=== PATIENT | male | born 1990 | race Caucasian/White ===

== ENCOUNTER 2024-08-08 14:45 | Emergency (ER) | payer OTHER, SELFPAY ==
[2024-08-08 14:46] VITALS: BMI 32.8
[2024-08-08 14:58] VITALS: BP 167/97; PULSE 93; RESP 18; TEMP 37.6; O2SAT 97
--- NOTE | 2024-08-08 15:04 | PD.EDSKIN ---
ED Skin Abcess FB-RME/HPI General Chief complaint: Abdominal Pain Stated complaint: POSS CELLULITIS TO MID ABD Time Seen by Provider: 08/08/24 14:52 Arrival date/time: 08/08/24 14:45 34-year-old male with no significant medical problems presents the emergency department complains of skin sore to his abdomen as well as his right leg patient reports no fever nausea vomiting Limitations: no limitations Related Data Previous Rx's ?Medication ?Instructions ?Recorded clindamycin HCl 150 mg capsule 450 mg (3 x 150 mg) PO TID 7 days 08/08/24 #63 caps hydrocodone 5 mg-acetaminophen 325 1 tab PO BID PRN pain #10 tabs 08/08/24 mg tablet ibuprofen 800 mg tablet 800 mg PO TID PRN pain #30 tabs 08/08/24 mupirocin 2 % topical ointment 1 applic topical TID 10 days #22 08/08/24 grams Allergies Allergy/AdvReac Type Severity Reaction Status Date / Time No Known Allergies Allergy Verified 08/08/24 14:48 Review of Systems Review of Systems Systems Reviewed: All systems reviewed, normal except as documented Constitutional Constitutional: Reports system reviewed and no additional complaints, except as documented, Denies fever(s) and Denies headache(s) Eyes Eyes: Reports system reviewed and no additional complaints, except as documented and Denies blurry vision ENT Ears, Nose, Mouth, and Throat: Reports system reviewed and no additional complaints, except as documented, Denies headache(s), Denies nasal congestion and Denies nasal discharge Cardiovascular Cardiovascular: Reports system reviewed and no additional complaints, except as documented, Denies chest pain and Denies dyspnea Respiratory Respiratory: Reports system reviewed and no additional complaints, except as documented, Denies chest congestion, Denies cough and Denies dyspnea Gastrointestinal Gastrointestinal: Reports system reviewed and no additional complaints, except as documented and Denies abdominal pain Integumentary/Breasts Skin/Breast: Reports system reviewed and no additional complaints, except as documented, Denies rash and Reports other (Skin sore, cellulitis) Neurologic Neurologic: Reports system reviewed and no additional complaints, except as documented, Reports as per HPI and Denies headache(s) Past Medical History Social History SMOKING STATUS: Never smoker ED Exam General Limitations: Present no limitations General appearance: Present alert and in no apparent distress Head Head exam: Present atraumatic Eye Eye exam: Present normal appearance, PERRL and EOMI; Absent conjunctival injection ENT ENT exam: Present normal exam, normal oropharynx and mucous membranes moist Neck Neck exam: Present normal inspection, full ROM and trachea midline Chest Chest inspection: Present normal inspection and symmetric chest wall rise Respiratory Respiratory exam: Present normal lung sounds bilaterally Cardiovascular Cardiovascular exam: Present regular rate, normal rhythm and normal heart sounds Abdominal Exam Abdominal exam: Present soft and normal bowel sounds Extremities Exam Extremities exam: Present normal inspection and full ROM Back Exam Back exam: Present normal inspection and full ROM Neurological Exam Neurological exam: Present alert, oriented X3, CN II-XII intact, normal gait and reflexes normal; Absent motor sensory deficit Psychiatric Psychiatric exam: Present normal affect and normal mood Skin Skin exam: Present warm, dry and other (Skin sore) Course Quality Measures none Vital Signs Vital signs: Vital Signs Temperature 99.7 F 08/08/24 14:58 Pulse Rate 93 08/08/24 14:58 Respiratory Rate 18 08/08/24 14:58 Blood Pressure 167/97 H 08/08/24 14:58 Pulse Oximetry (%) 97 08/08/24 14:58 Oxygen Delivery Method Room Air 08/08/24 14:58 O2 saturation 97% on room air within normal limits Skin / Abscess / Foreign Body MDM Narrative MDM Narrative:: 34-year-old male with no significant medical problems presents the emergency department complains of skin sore to his abdomen as well as his right leg patient reports no fever nausea vomiting On exam patient has skin sore to the abdomen as well as right leg Patient will be treated with course of pain medication antibiotics Patient discharged home in no distress to follow-up with primary care doctor in the next 24 to 48 hours and for any worsening symptoms to return to the ER immediately Patient data External records reviewed:: None Clinical information provided by:: patient Social determinants that could affect healthcare access:: none Patient has the following chronic illnesses:: None How is presenting disease/condition affected by chronic disease/condition?: no chronic disease Evaluation data The following diagnostics were reviewed and interpreted by me:: other (specify) (N/A) Lab and/or radiology exams considered but not ordered:: Consider not indicated Interpretation Summary: N/A Medications / Prescriptions Medications or Prescriptions considered but not ordered:: Given Medication administrations:: Given Consultations Consultation(s) initiated? (list below): No Diagnosis Skin/Abscess Differential Diagnosis: abscess of skin or subcutaneous tissue, urticaria and cellulitis Most likely diagnosis given after review of the tests above:: Skin sore, cellulitis Admission Indicated Admission indicated?: not indicated Admission Request Was there a request for admission?: No Disposition Plan Disposition Plan: Discharge Discharge Attestation Discharge Attestation: The patient and all family members were given an opportunity to ask questions and understood the discharge instructions. Discharge instructions specifically effects, indications for sooner follow up or return to the emergency department, and the expected course of current diagnosis. Patient condition: Stable Discharge Plan Plan Patient Disposition: HOME (Self Care) Disposition Comment: Stable Prescriptions/Referrals Prescriptions/Med Rec: New ibuprofen 800 mg tablet 800 mg PO TID PRN (Reason: pain) Qty: 30 0RF clindamycin HCl 150 mg capsule 450 mg PO TID 7 Days Qty: 63 0RF mupirocin 2 % ointment 1 applic topical TID 10 Days Qty: 22 0RF hydrocodone-acetaminophen 5-325 mg tablet 1 tab PO BID MDD 10 PRN (Reason: pain) Qty: 10 0RF Problem List Clinical Impression: Cellulitis Patient/Caregiver Discharge Instructions Education Materials: ED Cellulitis Additional Instructions: Please follow up with your primary care doctor in the next 24-48hrs for any worsening symptoms return here immediately Print Language: Greenlandic Stand Alone Forms: Litzy Award Info., Patient Portal Info Letter PA/CLOTHES DESIGNER Supervising Physician PA/CLOTHES DESIGNER Supervising Physician: Dr. alvarez
== END 2024-08-08 17:00 | disposition home or self-care (01) ==
PROVIDERS: Emergency Provider Emergency Medicine
DX: L03.311 Cellulitis of abdominal wall (principal); L03.115 Cellulitis of right lower limb
CPT/HCPCS: 99281

== ENCOUNTER 2025-02-03 00:21 | Emergency (ER) | payer OTHER, SELFPAY ==
[2025-02-03 00:25] VITALS: BMI 34.4
[2025-02-03 00:33] VITALS: BP 171/133; PULSE 84; RESP 18; TEMP 36.9; O2SAT 100
[2025-02-03] MEDS: CLINDAMYCIN 150 MG CAPSULE 300 MG PO ×2 (00:51)
--- NOTE | 2025-02-03 03:19 | EDNOTE_ITS ---
<Statement entered by Damaris Amezcua MD - 02/03/25 18:26> As co-signing physician, I was present and available for consult prn. I concur with the plan and care as documented by the midlevel provider. ED Skin Abcess FB-RME/HPI General Chief complaint: Hand/Wrist Problems Stated complaint: LEFT HAND SWELLING FOR TWO DAY Time Seen by Provider: 02/03/25 00:40 Arrival date/time: 02/03/25 00:21 35M with no significant PMH presents to ED with 2 days of L hand swelling w/o fall/trauma or open wound. Limitations: no limitations Related Data Home Medications ?Medication ?Instructions ?Recorded ?Confirmed Hydrocodone/Acetaminophen * (NORCO 1 tab PO Q4H PRN [place] IN #0 tabs 05/10/16 5/325 *) Previous Rx's ?Medication ?Instructions ?Recorded Hydrocodone/Acetaminophen * (NORCO 1 - 2 tab PO Q4H [place] N PAIN #10 tabs 05/10/16 5/325 *) ibuprofen 600 mg tablet 1 tab PO Q8HR PRN pain #30 t abs 05/10/16 hydrocodone 5 mg-acetaminophen 325 1 tab PO BID PRN pa in #10 tabs 08/08/24 mg tablet ibuprofen 800 mg tablet 800 mg PO TID PRN pain #30 t abs 08/08/24 clindamycin HCl 300 mg capsule 600 mg (2 x 300 mg) PO BID 7 days 02/03/25 #28 caps Allergies Allergy/AdvReac Type Severity Reaction Status Date / Time No Known Allergies Allergy Verified 02/03/25 00:22 Review of Systems Review of Systems Systems Reviewed: All systems reviewed, normal except as documented Constitutional Constitutional: Reports system reviewed and no additional complaints, except as documented, Denies fever(s) and Denies headache(s) ENT Ears, Nose, Mouth, and Throat: Denies disequilibrium and Denies headache(s) Cardiovascular Cardiovascular: Reports system reviewed and no additional complaints, except as documented, Denies chest pain and Denies dyspnea Respiratory Respiratory: Reports system reviewed and no additional complaints, except as documented, Denies cough and Denies dyspnea Gastrointestinal Gastrointestinal: Reports system reviewed and no additional complaints, except as documented, Denies abdominal pain, Denies nausea and Denies vomiting Integumentary/Breasts Skin/Breast: Reports as per HPI and Reports skin pain Neurologic Neurologic: Reports system reviewed and no additional complaints, except as documented, Denies confusion, Denies disequilibrium and Denies headache(s) Psychiatric Psychiatric: Denies confusion Past Medical History Social History SMOKING STATUS: Never smoker ED Exam General Limitations: Present no limitations General appearance: Present alert and in no apparent distress Head Head exam: Present atraumatic Eye Eye exam: Present normal appearance, PERRL and EOMI ENT ENT exam: Present normal exam, normal oropharynx and mucous membranes moist Neck Neck exam: Present normal inspection, full ROM and trachea midline Chest Chest inspection: Present normal inspection and symmetric chest wall rise Respiratory Respiratory exam: Present normal lung sounds bilaterally Cardiovascular Cardiovascular exam: Present regular rate, normal rhythm and normal heart sounds Abdominal Exam Abdominal exam: Present soft and normal bowel sounds Extremities Exam Extremities exam: Present full ROM Expanded Upper Extremity Exam Hand exam: Present full ROM (L), tenderness, swelling and laceration Back Exam Back exam: Present normal inspection and full ROM Neurological Exam Neurological exam: Present alert, oriented X3 and CN II-XII intact Psychiatric Psychiatric exam: Present normal affect and normal mood Skin Skin exam: Present warm, dry, intact and normal color Course Quality Measures none Orders Category Date Time Status Clindamycin [Cleocin] Med 02/03/25 00:43 Discontinued 300 mg PO X1 ONE Clindamycin [Cleocin] Med 02/03/25 00:48 Discontinued 300 mg PO X1 ONE Vital Signs Vital signs: Vital Signs Temperature 98.5 F 02/03/25 00:33 Pulse Rate 84 02/03/25 00:33 Respiratory Rate 18 02/03/25 00:33 Blood Pressure 171/133 H 02/03/25 00:33 Pulse Oximetry (%) 100 02/03/25 00:33 Oxygen Delivery Method Room Air 02/03/25 00:33 O2 at 100% and WNLs Skin / Abscess / Foreign Body MDM Narrative MDM Narrative:: 35M with no significant PMH presents to ED with 2 days of L hand swelling w/o fall/trauma or open wound. Physical exam reveals area of redness and tenderness around eroded/dry skin between L 3rd and 4th fingers. Likely cellulitis. Patient data External records reviewed:: [facility] previous records Clinical information provided by:: patient Social determinants that could affect healthcare access:: none Patient has the following chronic illnesses:: none How is presenting disease/condition affected by chronic disease/condition?: no chronic disease Evaluation data The following diagnostics were reviewed and interpreted by me:: other (specify) (none) Lab and/or radiology exams considered but not ordered:: not ordered Interpretation Summary: n/a Medications / Prescriptions Medications or Prescriptions considered but not ordered:: ordered Medication administrations:: Medication Administration History Discontinued Medications Clindamycin HCl (Clindamycin 150 Mg Capsule) 300 mg PO X1 ONE Stop: 02/03/25 00:44 Last Admin: 02/03/25 00:51 Dose: 300 mg Documented By: Clindamycin HCl (Clindamycin 150 Mg Capsule) 300 mg PO X1 ONE Stop: 02/03/25 00:49 Last Admin: 02/03/25 00:51 Dose: 300 mg Documented By: above Consultations Consultation(s) initiated? (list below): No Diagnosis Skin/Abscess Differential Diagnosis: abscess of skin or subcutaneous tissue, viral exanthem, dermatophytosis, urticaria, herpes zoster, allergic reaction to drug, cellulitis, eczema, insect bites, impetigo and contact dermatitis Most likely diagnosis given after review of the tests above:: cellulitis Admission Indicated Admission indicated?: not indicated Admission Request Was there a request for admission?: No Disposition Plan Disposition Plan: Discharge Discharge Attestation Discharge Attestation: The patient and all family members were given an opportunity to ask questions and understood the discharge instructions. Discharge instructions specifically effects, indications for sooner follow up or return to the emergency department, and the expected course of current diagnosis. Patient condition: Stable Discharge Plan Plan Patient Disposition: HOME (Self Care) Discharge Disposition comment: Stable Prescriptions/Referrals Prescriptions/Med Rec: New clindamycin HCl 300 mg capsule 600 mg PO BID 7 Days Qty: 28 0RF No Action Hydrocodone/Acetaminophen * (NORCO 5/325 *) 1 TAB tablet 1 tab PO Q4H PRN (Reason: PAIN) Qty: 0 ibuprofen 600 MG tablet 1 tab PO Q8HR PRN (Reason: pain) Qty: 30 0RF Hydrocodone/Acetaminophen * (NORCO 5/325 *) 1 TAB tablet 1 - 2 tab PO Q4H PRN (Reason: PAIN) Qty: 10 0RF Rx Instructions: FOR PAIN ibuprofen 800 mg tablet 800 mg PO TID PRN (Reason: pain) Qty: 30 0RF hydrocodone-acetaminophen 5-325 mg tablet 1 tab PO BID MDD 10 PRN (Reason: pain) Qty: 10 0RF Problem List Clinical Impression: Cellulitis Patient/Caregiver Discharge Instructions Education Materials: ED Cellulitis Additional Instructions: Please follow-up with PCP within 24-48 hours and return immediately if symptoms worsen. Print Language: Croatian Stand Alone Forms: Patient Portal Info Letter PA/VALVE TECHNICIAN Supervising Physician PA/VALVE TECHNICIAN Supervising Physician: Dr. Amezcua
== END 2025-02-03 01:09 | disposition home or self-care (01) ==
LOC: SERX 01:00
PROVIDERS: Emergency Provider Emergency Medicine
DX: L03.114 Cellulitis of left upper limb (principal)
CPT/HCPCS: 99282; A9270

== ENCOUNTER 2025-08-01 09:10 | Emergency (ER) | payer OTHER, SELFPAY ==
[2025-08-01 10:03] VITALS: BP 145/91; PULSE 75; RESP 18; TEMP 36.8; O2SAT 96; BMI 35.0
--- NOTE | 2025-08-01 10:29 | EDNOTE_ITS ---
Upper Extremity Injury RME/HPI General Chief Complaint: Hand/Wrist Problems Stated Complaint: L) INDEX FINGER INJURY Time Seen by Provider: 08/01/25 10:13 Arrival date/time: 08/01/25 09:10 RME / HPI RME / HPI narrative: 35-year-old male [id number], with a past medical history of left hand infections presents to the ER complaining of complaining of left second digit pain, redness, discharge x 2 days which she has been continually trying to get out more discharge. Patient had some leftover tetracycline from his prior infections and started taking that yesterday he has taken 2 doses. But none today. Denies any fever, numbness, tingling, weakness. Patient states he even went to the gym yesterday. Related Data Home Medications ?Medication ?Instructions ?Recorded ?Confirmed Hydrocodone/Acetaminophen * (NORCO 1 tab PO Q4H PRN PA IN #0 tabs 05/10/16 5/325 *) Previous Rx's ?Medication ?Instructions ?Recorded Hydrocodone/Acetaminophen * (NORCO 1 - 2 tab PO Q4H [place] N PAIN #10 tabs 05/10/16 5/325 *) ibuprofen 600 mg tablet 1 tab PO Q8HR PRN pain #30 t abs 05/10/16 hydrocodone 5 mg-acetaminophen 325 1 tab PO BID PRN pa in #10 tabs 08/08/24 mg tablet ibuprofen 800 mg tablet 800 mg PO TID PRN pain #30 t abs 08/08/24 cephalexin 500 mg capsule 500 mg PO QID #40 caps 08/01 doxycycline hyclate 100 mg capsule 100 mg PO QDAY #20 caps 08/01/25 Allergies Allergy/AdvReac Type Severity Reaction Status Date / Time No Known Allergies Allergy Verified 08/01/25 09:14 ED Exam Narrative Physical exam: Constitutional: Vital Signs Reviewed. Well appearing. No acute distress. Not toxic appearing. Head: Normocephalic, atraumatic. Eyes: Conjunctiva clear. ENT: Mucous membranes moist. Neck: Trachea midline. Normal range of motion. No nuchal rigidity. Respiratory: Normal effort. No respiratory distress or accessory muscle use. Neuro: Alert and oriented. Speech normal. No focal gross motor or sensory deficits observed. Skin: Warm, dry, normal color. Extremity: Left second digit on the proximal dorsum there is erythema, tenderness, a superficial wound. No crepitus no tenderness proximal to the MCP joint on the extensor tendon. No sausage digit. Digit is in a neutral position not held in flexion or extension. Cap refill less than 2 seconds for left second digit. FROM and Strength 5/5 for all other digits at MCP, PIP, DIP joints of left hand and digits. Psych: Pleasant. Normal affect. Cooperative. Course Quality Measures none Orders Category Date Time Status Doxycycline [Vibramycin] Med 08/01/25 10:35 Discontinued 100 mg PO X1 ONE Ketorolac Inj [Toradol Inj] Med 08/01/25 10:35 Discontinued 30 mg IM X1 ONE cephALEXin [Keflex] Med 08/01/25 10:36 Discontinued 500 mg PO X1 ONE Vital Signs Vital signs: Vital Signs Temperature 98.2 F 08/01/25 10:03 Pulse Rate 75 08/01/25 10:03 Respiratory Rate 18 08/01/25 10:03 Blood Pressure 145/91 H 08/01/25 10:03 Pulse Oximetry (%) 96 08/01/25 10:03 Oxygen Delivery Method Room Air 08/01/25 10:03 Extremity Injury MDM Narrative MDM Narrative:: MDM This patient?s soft tissue infection appears appropriate for outpatient management with close follow-up by a clinician within 24?48 hours. There are no signs of systemic toxicity, and a serious, rapidly progressive infection is unlikely based on presentation and exam. Doubt necrotizing fasciitis given lack of tenderness beyond erythema or crepitus, and doubt lymphangitis given lack of streaking. No focal fluid collection is appreciated to suggest need for incision and drainage. Advised patient to continue with warm compresses 20 minutes at a time 3 times a day. No Kan[place] signs to suggest infectious flexor tenosynovitis. Antibiotics have been initiated, and response will be assessed at follow-up. The patient has been instructed on signs of acute progression and to return immediately if symptoms worsen or change. I offered patient lab work and imaging however he declined at this time. At the time of reassessment prior to discharge, the patient remains alert and oriented ?3 with GCS 15. Vitals are normal, pain is controlled, and the patient is tolerating oral intake without nausea or vomiting. The patient is agreeable to discharge and verbalizes understanding of the diagnosis, studies, treatment plan, medications (including side effects/precautions), and strict ER return precautions as discussed in the ED. All concerns were addressed, and the patient is comfortable with the plan. Patient data External records reviewed:: None Clinical information provided by:: patient Social determinants that could affect healthcare access:: none Patient has the following chronic illnesses:: None How is presenting disease/condition affected by chronic disease/condition?: uneffected by Evaluation data The following diagnostics were reviewed and interpreted by me:: other (specify) Lab and/or radiology exams considered but not ordered:: Additional Labs and radiology considered, but not ordered as they were not clinically indicated at this time. Interpretation Summary: None Medications / Prescriptions Medications or Prescriptions considered but not ordered:: I ordered medications based on the patient?s clinical needs and assessment, as documented in the chart. For medications not prescribed, they were not indicated for the patient's current condition, and I determined they were unnecessary at this time to avoid potential risks or complications. Medication administrations:: Medication Administration History Discontinued Medications Cephalexin HCl (Cephalexin 250 Mg Capsule) 500 mg PO X1 ONE Stop: 08/01/25 10:37 Last Admin: 08/01/25 10:48 Dose: 500 mg Documented By: Doxycycline Hyclate (Doxycycline 100 Mg Tablet) 100 mg PO X1 ONE Stop: 08/01/25 10:36 Last Admin: 08/01/25 10:47 Dose: 100 mg Documented By: Ketorolac Tromethamine (Ketorolac Inj 30 Mg/Ml Vial) 30 mg IM X1 ONE Stop: 08/01/25 10:36 Last Admin: 08/01/25 10:49 Dose: 30 mg Documented By: As noted Consultations Consultation(s) initiated? (list below): No Diagnosis Upper Extremity Injury Differential Diagnosis: sprain and strain of wrist and other Most likely diagnosis given after review of the tests above:: Cellulitis versus wound infection Admission Indicated Admission indicated?: not indicated Admission Request Was there a request for admission?: No Disposition Plan Disposition Plan: Discharge Discharge Attestation Discharge Attestation: The patient and all family members were given an opportunity to ask questions and understood the discharge instructions. Discharge instructions specifically effects, indications for sooner follow up or return to the emergency department, and the expected course of current diagnosis. Patient condition: Stable Discharge Plan Plan Patient Disposition: HOME (Self Care) Patient condition on transfer: Stable Prescriptions/Referrals Prescriptions/Med Rec: New doxycycline hyclate 100 mg capsule 100 mg PO QDAY Qty: 20 0RF cephalexin 500 mg capsule 500 mg PO QID Qty: 40 0RF No Action Hydrocodone/Acetaminophen * (NORCO 5/325 *) 1 TAB tablet 1 tab PO Q4H PRN (Reason: PAIN) Qty: 0 ibuprofen 600 MG tablet 1 tab PO Q8HR PRN (Reason: pain) Qty: 30 0RF Hydrocodone/Acetaminophen * (NORCO 5/325 *) 1 TAB tablet 1 - 2 tab PO Q4H PRN (Reason: PAIN) Qty: 10 0RF Rx Instructions: FOR PAIN ibuprofen 800 mg tablet 800 mg PO TID PRN (Reason: pain) Qty: 30 0RF hydrocodone-acetaminophen 5-325 mg tablet 1 tab PO BID MDD 10 PRN (Reason: pain) Qty: 10 0RF Problem List Clinical Impression: Cellulitis Patient/Caregiver Discharge Instructions Education Materials: ED Cellulitis Additional Instructions: Perform warm compresses 20 minutes at a time 3-5 times a day. Follow up with your primary medical doctor and your hand surgeon within 48 hours. Return to the Emergency Room immediately for any new, worsening, continuing symptoms or any concerns at all. Return to the Emergency Room within 48 hours if you are unable to follow up with your primary medical doctor and your hand surgeon within 48 hours. Print Language: Citizen Of [place] Stand Alone Forms: Litzy Award Info., Patient Portal Info Letter PA/LINUX VMWARE ADMINISTRATOR Supervising Physician PA/LINUX [employer]WARE ADMINISTRATOR Supervising Physician: Dr. Wheatley
[2025-08-01] MEDS: DOXYCYCLINE 100 MG TABLET PO (10:47)
[2025-08-01] MEDS: KETOROLAC INJ 30 MG/ML VIAL IM (10:49)
== END 2025-08-01 11:31 | disposition home or self-care (01) ==
PROVIDERS: Emergency Provider Physician Assistant; PCP Family Medicine
DX: L03.012 Cellulitis of left finger (principal)
CPT/HCPCS: 96372; 99282; J1885; A9270